=== PATIENT | female | born 1955 | race Caucasian/White ===

== ENCOUNTER 2017-01-27 07:56 | Outpatient (CLI) | payer OTHER ==
--- NOTE | 2017-01-28 09:31 | DIAGNOSTIC IMAGING REPORT ---
PROCEDURE: MG BILATERAL SCREENING W/CAD INDICATION: SCREENING, grandmother with a history of breast cancer. TECHNIQUE: Bilateral CC and MLO digital views. COMPARISON: Mammograms 09/18/2006 and 05/24/2005. FINDINGS: Computer-aided detection applied. Mild dense. Stable intramammary lymph nodes. Scattered dystrophic calcifications. No change. IMPRESSION: 1. Negative mammogram RESULT CODE: 1- Negative. A. A negative report should not delay biopsy if a dominant or clinically suspicious mass is present. 10-15% of cancers are not identified by x-ray. B. A negative report may reinforce clinical impression. C. Adenosis and dense breasts may obscure an underlying neoplasm. D. False positive reports average 6-10%. E.. A yearly screening mammogram is recommended. A reminder letter will be scheduled.
== END 2017-01-27 23:00 ==
LOC: MAM SRH 07:56
DX: Z12.31 Encounter for screening mammogram for malignant neoplasm of breast (principal)